=== PATIENT | female | born 2000 ===

== ENCOUNTER 2024-10-28 14:31 | Outpatient (CLI) | payer OTHER | END 2024-10-28 14:34 | disposition home or self-care (01) | LOC: PRENATAL 14:31 | PROVIDERS: ATTEND Obstetrics & Gynecology Maternal & Fetal Medicine | DX: O44.00 Complete placenta previa NOS or without hemorrhage, unspecified trimester (principal); Z14.8 Genetic carrier of other disease; Z3A.20 20 weeks gestation of pregnancy ==

== ENCOUNTER → 2025-01-20 | Outpatient (CLI) | payer OTHER | END | disposition home or self-care (01) | LOC: PRENATAL 15:27 | PROVIDERS: ATTEND Obstetrics & Gynecology Maternal & Fetal Medicine | DX: O26.849 Uterine size-date discrepancy, unspecified trimester (principal); O36.8199 Decreased fetal movements, unspecified trimester, other fetus; Z14.8 Genetic carrier of other disease; O99.019 Anemia complicating pregnancy, unspecified trimester; Z3A.33 33 weeks gestation of pregnancy ==

== ENCOUNTER 2025-01-25 08:56 | Outpatient (CLI) | payer OTHER | END 2025-01-25 08:59 | disposition home or self-care (01) | LOC: PRENATAL 08:56 | PROVIDERS: ATTEND Obstetrics & Gynecology Maternal & Fetal Medicine | DX: Z76.1 Encounter for health supervision and care of foundling (principal) ==

== ENCOUNTER 2025-03-09 14:19 | Inpatient (IN) | payer OTHER ==
[~2025-03-09] VITALS: Ht 157.5 cm; Wt 73.5 kg
[~2025-03-09 14:19] MED LIST: IRON325 MG; PRENATAL TABLE1 EAC4
[2025-03-09 14:29] VITALS: BP 123/84
[2025-03-09 14:57] LABS: URINE APPEARANCE Clear; URINE BILIRRUBIN Negative (NEGATIVE); URINE BLOOD Negative; URINE COLOR Yellow; URINE GLUCOSE Negative (NEGATIVE); URINE KETONE Negative (NEGATIVE); URINE LEUKOCYTE Small; URINE NITRATE Negative; URINE PROTEIN Negative (NEGATIVE); URINE UROBILINOGEN 0.2 E.U./dl
[2025-03-09 15:00] LABS: BASO % 0.5 % (0.1-1.2); EOS # 0.03 (0.04-0.54); EOS % 0.4 % (0.7-7.0); LYMPH # 1.72 (1.18-3.74); LYMPH % 21.6 % (19.3-53.1); MEAN PLATELET VOLUME 10.60 fl (9.4-12.4); MONO # 0.57 (0.24-0.82); MONO % 7.2 % (4.7-12.5); NEUT # 5.55 (1.56-6.13); NEUT % 69.8 % (34.0-71.1); RED CELL DISTRIBUTION WIDTH 20.5 % (11.6-14.4)
[2025-03-09 15:01] LABS: URINE BACTERIA 1113.4 uL (0.0-1933); URINE EPITHELIAL CELLS 13.5 uL (0.0-38.8); URINE WBC 21.5 uL (0.0-23.2)
[2025-03-09] MEDS ORDERED: RINGERS SOLUTION,LACTATED 1,000 ML IV SCH (15:15)
[2025-03-09 15:18] LABS: INR < 0.93
[2025-03-09 15:21] VITALS: BP 117/69
[2025-03-09 15:22] LABS: URINE CAST 0.00 uL (0.0-1.40); URINE RBC 1.3 uL (0.0-20.8)
[2025-03-09 18:55] VITALS: BP 118/83
[2025-03-09 23:50] VITALS: BP 113/71
[2025-03-10] VITALS (10 sets, daily range): BP systolic 112–130; BP diastolic 60–87
[2025-03-10] MEDS ORDERED: OXYTOCIN 20 UNITS/500ML RL PIGGYBAG IV SCH (11:45)
[2025-03-10] MEDS ORDERED: MORPHINE SULFATE 4 MG/ML CARTRIDGE IV ONE (16:00)
[2025-03-10] MEDS ORDERED: OXYTOCIN 1,000 ML IV SCH (18:15)
[2025-03-10] MEDS ORDERED: CHLORHEXIDINE GLUCONATE 120 ML BOTTLE TOP SCH (18:15)
[2025-03-10] MEDS ORDERED: ACETAMINOPHEN 500 MG GEL..CAP PO PRN (18:15)
[2025-03-10] MEDS ORDERED: ERYTHROMYCIN BASE OPHT 1GM EACH TUBE OP ONE (19:15)
[2025-03-10] MEDS ORDERED: LIDOCAINE HCL 1% 10ML VIAL IJ ONE (19:15)
[2025-03-11 00:23] VITALS: BP 112/72
[2025-03-11 00:41] LABS: BASO % 0.2 % (0.1-1.2); EOS # 0.00 (0.04-0.54); EOS % 0.0 % (0.7-7.0); LYMPH # 1.56 (1.18-3.74); LYMPH % 9.9 % (19.3-53.1); MEAN PLATELET VOLUME 10.40 fl (9.4-12.4); MONO # 1.17 (0.24-0.82); MONO % 7.4 % (4.7-12.5); NEUT # 12.97 (1.56-6.13); NEUT % 82.1 % (34.0-71.1); RED CELL DISTRIBUTION WIDTH 20.5 % (11.6-14.4)
[2025-03-11 08:47] VITALS: BP 125/81
[2025-03-11] MEDS ORDERED: PNV,CALCIUM 72/IRON/FOLIC ACID 1 TAB TABLET PO SCH (09:00)
[2025-03-11 16:00] VITALS: BP 127/75
[2025-03-12 02:28] VITALS: BP 112/73
[2025-03-12 08:26] VITALS: BP 120/78
== END 2025-03-12 16:08 | disposition home or self-care (01) | DRG 807 ==
LOC: OB/GYN 14:19 → LDR 14:19 → OB/GYN 03-10 18:56
PROVIDERS: ADMIT Obstetrics & Gynecology; ATTEND Obstetrics & Gynecology
PROC: 4A1HXCZ Monitoring of Products of Conception, Cardiac Rate, External Approach (ICD-10-PCS; 2025-03-09)
PROC: 10E0XZZ Delivery of Products of Conception, External Approach (ICD-10-PCS; principal; 2025-03-10)
PROC: 0W8NXZZ Division of Female Perineum, External Approach (ICD-10-PCS; 2025-03-10)
DX: O80 Encounter for full-term uncomplicated delivery (principal); Z37.0 Single live birth; Z3A.39 39 weeks gestation of pregnancy